=== PATIENT | male | born 2000 | race Hispanic/Latino ===

== ENCOUNTER 2021-10-29 15:34 | Emergency (ER) | payer OTHER, MEDICAID ==
[2021-10-29] MEDS ORDERED: Rabies Vaccine Human 2.5 UNITS VIAL ONE (18:40)
== END 2021-10-29 19:51 | disposition home or self-care (01) ==
LOC: CSHERS 15:34
DX: S81.851A Open bite, right lower leg, initial encounter (principal); W54.0XXA Bitten by dog, initial encounter
CPT/HCPCS: 90375; 90471; 90675; 96372

== ENCOUNTER → 2021-11-02 | Day surgery (SDC) | payer MEDICAID ==
[~2021-11-02] MED LIST: Rabies Vaccine Human 2.5 UNITS VIAL ONE
== END ==
LOC: CSHER/OP 11:19
PROVIDERS: ATTEND Pathology Anatomic Pathology & Clinical Pathology
DX: Z23 Encounter for immunization (principal)
CPT/HCPCS: 90471; 90675

== ENCOUNTER → 2021-11-06 | Day surgery (SDC) | payer MEDICAID | LOC: CSHER/OP 18:29 | PROVIDERS: ATTEND Emergency Medicine | DX: Z23 Encounter for immunization (principal) | CPT/HCPCS: 90471; 90675 ==

== ENCOUNTER → 2021-11-13 | Day surgery (SDC) | payer MEDICAID | LOC: CSHERS 09:25 | PROVIDERS: ATTEND Emergency Medicine | DX: Z23 Encounter for immunization (principal) | CPT/HCPCS: 90471; 90675 ==